=== PATIENT | female | born 1990 | race Caucasian/White ===

== ENCOUNTER 2017-11-01 19:03 | Emergency (ER) | payer BC ==
[2017-11-01 19:15] VITALS: RESP 16; TEMP 98
--- NOTE | 2017-11-01 20:37 | ED PDOC ---
HPI: Abdomen Time Seen by Provider: 11/01/17 19:32 Chief Complaint (Nursing): Abdominal Pain Chief Complaint (Provider): Abdominal Pain History Per: Patient History/Exam Limitations: no limitations Onset/Duration Of Symptoms: Days (3x) Current Symptoms Are (Timing): Still Present Location Of Pain/Discomfort: RLQ Quality Of Discomfort: "Pain" Associated Symptoms: Constipation. denies: Fever, Nausea, Vomiting Additional Complaint(s): Irina Salazar is a 26 year old female who presents to the ED for an evaluation of abdominal pain onset for 3 days. Patient has abdominal pain since Monday with constipation and decreased appetite. She denies fever, nausea and vomiting. PMD: Dr. Jacobo Past Medical History Reviewed: Historical Data, Nursing Documentation, Vital Signs Vital Signs: Last Vital Signs Temp 98.0 F 11/01/17 19:13 Pulse 79 11/01/17 22:56 Resp 16 11/01/17 22:56 BP 127/82 11/01/17 22:56 Pulse Ox 99 11/01/17 22:56 - Medical History PMH: No Chronic Diseases - Family History Family History: States: Unknown Family Hx - Social History Current smoker - smoking cessation education provided: Yes Alcohol: Social Drugs: Denies - Home Medications Home Medications: Ambulatory Orders Medication Instructions Recorded Azithromycin [Zithromax] 250 mg PO DAILY #6 tab 11/21/15 Polyethylene Glycol 3350 [Miralax] 17 g PO QAM PRN #7 pkg 11/01/17 - Allergies Allergies/Adverse Reactions: Allergies Allergy/AdvReac Type Severity Reaction Status Date / Time No Known Allergies Allergy Verified 11/01/17 19:13 Review of Systems ROS Statement: Except As Marked, All Systems Reviewed And Found Negative Constitutional: Negative for: Fever Gastrointestinal: Positive for: Abdominal Pain (right lower quadrant), Constipation. Negative for: Nausea, Vomiting Psych: Negative for: Suicidal ideation (homicidal ideation ) Physical Exam - Reviewed Nursing Documentation Reviewed: Yes Vital Signs Reviewed: Yes - Physical Exam Appears: Positive for: Well, Non-toxic, No Acute Distress Head Exam: Positive for: ATRAUMATIC, NORMAL INSPECTION, NORMOCEPHALIC Skin: Positive for: Normal Color, Warm, Dry Eye Exam: Positive for: EOMI, Normal appearance, PERRL ENT: Positive for: Normal ENT Inspection Neck: Positive for: Normal, Painless ROM, Supple. Negative for: Decreased ROM Cardiovascular/Chest: Positive for: Regular Rate, Rhythm. Negative for: Murmur Respiratory: Positive for: Normal Breath Sounds. Negative for: Decreased Breath Sounds, Wheezing, Respiratory Distress Gastrointestinal/Abdominal: Positive for: Soft, Tenderness (right lower quadrant ) Back: Positive for: Normal Inspection. Negative for: L CVA Tenderness, R CVA Tenderness Extremity: Positive for: Normal ROM. Negative for: Tenderness, Pedal Edema, Deformity Neurologic/Psych: Positive for: Alert, Oriented (x3). Negative for: Motor/ Sensory Deficits - Laboratory Results Result Diagrams: 11/01/17 20:18 11/01/17 20:18 - ECG O2 Sat by Pulse Oximetry: 98 (RA) Pulse Ox Interpretation: Normal Medical Decision Making Medical Decision Making: Time: 1953 Initial Impression: 26 year old female with right lower quadrant tenderness Initial Plan: --Abdomen & Pelvis IV Contrast [CT] --CMP --Lipase --Urine --ED Urine Dipstick --CBC w/ Differential --Toradol 15mg IV --Blood Culture --IV Insertion --Urinalysis Time: 2253 EXAM: CT Abdomen and Pelvis With Intravenous Contrast CLINICAL HISTORY: 26 years old, female; Pain; Abdominal pain; Flank; Right upper quadrant (ruq); Prior surgery; Surgery date: 6+ months; Surgery type: ; Additional info : Rlq pain TECHNIQUE: Axial computed tomography images of the abdomen and pelvis with intravenous contrast. All CT scans at this facility use at least one of these dose optimization techniques: automated exposure control; mA and/or kV adjustment per patient size (includes targeted exams where dose is matched to clinical indication); or iterative reconstruction. CONTRAST: 90 mL of Omnipaque was administered intravenously. COMPARISON: No relevant prior studies available. FINDINGS: Lung bases: Unremarkable. No mass. No consolidation. ABDOMEN: Liver: Unremarkable. No mass. Gallbladder and bile ducts: Unremarkable. No calcified stones. No ductal dilation. Pancreas: Unremarkable. No mass. No ductal dilation. Spleen: Unremarkable. No splenomegaly. Adrenals: Unremarkable. No mass. Kidneys and ureters: Unremarkable. No solid mass. No hydronephrosis. Stomach and bowel: Mild fecal retention in the right colon. No obstruction. No mucosal thickening. PELVIS: Appendix: Normal appendix. Bladder: Unremarkable. No mass. Reproductive: Unremarkable as visualized. ABDOMEN and PELVIS: Intraperitoneal space: Trace free fluid in the pelvis which is likely physiologic fluid. No free air. Bones/joints: No acute fracture. No dislocation. Soft tissues: Unremarkable. Vasculature: Unremarkable. No abdominal aortic aneurysm. Lymph nodes: Unremarkable. No enlarged lymph nodes. IMPRESSION: Mild fecal retention in the right colon. No acute findings Upon reevaluation, patient has improved on symptoms and has stable vitals. She was diagnosed with abdominal pain and constipation. Scribe Attestation: Documented by Lorne Fitch, acting as a scribe for Stan Nieto MD Provider Scribe Attestation: All medical record entries made by the Scribe were at my direction and personally dictated by me. I have reviewed the chart and agree that the record accurately reflects my personal performance of the history, physical exam, medical decision making, and the department course for this patient. I have also personally directed, reviewed, and agree with the discharge instructions and disposition. Disposition - Clinical Impression Clinical Impression: Constipation, Abdominal pain - Disposition Disposition Time: 22:30 Condition: STABLE Prescriptions: Polyethylene Glycol 3350 [Miralax] 17 g PO QAM PRN #7 pkg PRN Reason: Constipation Instructions: Constipation in Adults Forms: [employer] (Macedonian), [facility] ED School/Work Excuse
[2017-11-01 20:47] LABS: ALB/GLOB RATIO 1.3 (1.0-2.1); ALBUMIN 4.5 g/dL (3.5-5.0); ALT/SGPT 23 U/L (9-52); AST/SGOT 39 U/L (14-36); BASO % 0.6 % (0.0-2.0); BLOOD UREA NITROGEN 13 mg/dl (7-17); CALCIUM 9.4 mg/dL (8.4-10.2); EOS % 0.5 % (0.0-4.0); GFR NON-AFRICAN AMERICAN > 60; HEMOGLOBIN 12.7 g/dL (12.0-16.0); LIPASE 103 U/L (23-300); LYMPH # 1.5 K/uL (1.0-4.3); MEAN CELL VOLUME 93.7 fl (81.0-99.0); MEAN CORPUSCULAR HEMOGLOBIN 31.1 pg (27.0-31.0); MEAN CORPUSCULAR HGB CONC 33.2 g/dL (33.0-37.0); MEAN PLATELET VOLUME 9.2 fl (7.2-11.7); MONO # 0.5 K/uL (0.0-0.8); MONO % 9.2 % (0.0-10.0); NEUT # 2.9 K/uL (1.8-7.0); NEUT % 58.7 % (50.0-75.0); NRBC % 0.1 % (0.0-0.0); RBC 4.1 Mil/uL (3.80-5.20); RED CELL DISTRIBUTION WIDTH 12.2 % (11.5-14.5); SQUAMOUS EPITHIAL 11 /hpf (0-5); URINE BILIRUBIN NEGATIVE (NEGATIVE); URINE BLOOD NEGATIVE (NEGATIVE); URINE CLARITY SLIGHTY-CLOUDY (Clear); URINE COLOR YELLOW (YELLOW); URINE GLUCOSE (UA) NEG (Normal); URINE LEUKOCYTE ESTERASE NEG Leu/uL (Negative); URINE PROTEIN 30 mg/dL (NEGATIVE); URINE UROBILINOGEN 0.2-1.0 mg/dL (0.2-1.0); WHITE BLOOD COUNT 4.9 K/uL (4.8-10.8)
[2017-11-01] MEDS ORDERED: Iohexol 300 100 ML IJ ONE (21:47)
[2017-11-01] MEDS ORDERED: Sodium Chloride 0.9% 50 ML IV ONE (21:47)
[2017-11-01 23:07] VITALS: BP 127/82; PULSE 79
[2017-11-02 04:34] VITALS: O2SAT 98
--- NOTE | 2017-11-02 10:02 | CT ---
Date of service: 11/01/2017 PROCEDURE: CT Abdomen and Pelvis with contrast HISTORY: RLQ pain COMPARISON: None. TECHNIQUE: CT scan of the abdomen and pelvis was performed after administration of intravenous contrast. Oral contrast was not administered. Coronal and sagittal reformatted images were obtained. Contrast dose: 90 cc Omnipaque 300 Radiation dose: Total exam DLP = 326.98 mGy-cm. This CT exam was performed using one or more of the following dose reduction techniques: Automated exposure control, adjustment of the mA and/or kV according to patient size, and/or use of iterative reconstruction technique. FINDINGS: LOWER THORAX: The visualized lungs are clear. LIVER: Normal in size with normal enhancement. No gross lesion or ductal dilatation. GALLBLADDER AND BILE DUCTS: No calcified gallstones. PANCREAS: Normal in size and appearance. No gross lesion or ductal dilatation. SPLEEN: Normal in size and appearance. ADRENALS: Unremarkable. No mass. KIDNEYS AND URETERS: Normal in size and appearance. No hydronephrosis. No solid mass. VASCULATURE: No aortic aneurysm. BOWEL: The small bowel loops are normal in caliber. There is large amount of stool in the ascending colon and cecum. APPENDIX: Normal appendix. PERITONEUM: Unremarkable. No free fluid. No free air. LYMPH NODES: Unremarkable. No enlarged lymph nodes. BLADDER: Unremarkable. REPRODUCTIVE: Unremarkable. BONES: No acute fracture. OTHER FINDINGS: None. IMPRESSION: No acute abdominal or pelvic abnormality. Large amount of stool in the ascending colon and cecum. A preliminary report was provided by [facility].
== END 2017-11-01 23:07 | disposition home or self-care (01) ==
LOC: H.ER 19:03
DX: K59.00 Constipation, unspecified (principal); R10.9 Unspecified abdominal pain; F17.200 Nicotine dependence, unspecified, uncomplicated
CPT/HCPCS: 74177; 80053; 81003; 81025; 83690; 85025; 87040; 99283; J1885; Q9967

== ENCOUNTER 2017-11-14 08:08 | Emergency (ER) | payer BC ==
[2017-11-14 08:20] VITALS: RESP 20
[2017-11-14 08:21] VITALS: BMI 21.9
[2017-11-14 12:59] VITALS: BP 120/70; PULSE 82; TEMP 98; O2SAT 98
--- NOTE | 2017-11-14 15:50 | ED PDOC ---
HPI: Back Time Seen by Provider: 11/14/17 08:54 Chief Complaint (Nursing): Back Pain Chief Complaint (Provider): Back Pain History Per: Patient History/Exam Limitations: no limitations Additional Complaint(s): 26 years old female with history of scoliosis presents to the ED for evaluation of upper and lower back pain ongoing for months but has been worsening and she is unable to sleep at night due to the pain. Patient reports taking Tylenol for pain with no relief. She denies any fever or shortness of breath. PMD: Renetta Smith MD Past Medical History Reviewed: Historical Data, Nursing Documentation, Vital Signs Vital Signs: Last Vital Signs Temp 98 F 11/14/17 12:59 Pulse 82 11/14/17 12:59 Resp 20 11/14/17 08:27 BP 120/70 11/14/17 12:59 Pulse Ox 98 11/14/17 12:59 - Medical History Other PMH: Scoliosis - Surgical History Surgical History: No Surg Hx - Family History Family History: States: Unknown Family Hx - Social History Current smoker - smoking cessation education provided: No Alcohol: Social Drugs: Denies - Immunization History Hx Tetanus Toxoid Vaccination: No Hx Influenza Vaccination: No Hx Pneumococcal Vaccination: No - Home Medications Home Medications: Ambulatory Orders Medication Instructions Recorded Azithromycin [Zithromax] 250 mg PO DAILY #6 tab 11/21/15 Polyethylene Glycol 3350 [Miralax] 17 g PO QAM PRN #7 pkg 11/01/17 Cyclobenzaprine [Flexeril] 5 mg PO TID #15 tab 11/14/17 Naproxen 500 mg PO BID #20 tab 11/14/17 - Allergies Allergies/Adverse Reactions: Allergies Allergy/AdvReac Type Severity Reaction Status Date / Time No Known Allergies Allergy Verified 11/01/17 19:13 Review of Systems ROS Statement: Except As Marked, All Systems Reviewed And Found Negative Constitutional: Negative for: Fever Respiratory: Negative for: Shortness of Breath Musculoskeletal: Positive for: Back Pain (upper and lower) Physical Exam - Reviewed Nursing Documentation Reviewed: Yes Vital Signs Reviewed: Yes - Physical Exam Appears: Positive for: Non-toxic, No Acute Distress Head Exam: Positive for: ATRAUMATIC, NORMOCEPHALIC Eye Exam: Positive for: Normal appearance, EOMI, PERRL Cardiovascular/Chest: Positive for: Regular Rate, Rhythm. Negative for: Murmur Respiratory: Positive for: Normal Breath Sounds. Negative for: Respiratory Distress Back: Positive for: Normal Inspection. Negative for: L CVA Tenderness, R CVA Tenderness Extremity: Positive for: Normal ROM. Negative for: Tenderness Neurologic/Psych: Positive for: Alert, Oriented (x3) - ECG O2 Sat by Pulse Oximetry: 98 (RA) Pulse Ox Interpretation: Normal Medical Decision Making Medical Decision Making: Time: 914 Initial Impression: Back pain. Differential includes but not limited to musculoskeletal pain, scoliosis pain Initial Plan: --Flexirel 10 mg PO --Toradol 30 mg IM 1258 Upon provider reevaluation patient is feeling better, is medically stable, and requires no further treatment in the ED at this time. Patient will be discharged home with Rx for Flexeril and Naproxen. Counseling was provided and all questions were answered regarding diagnosis. ----- Scribe Attestation: Documented by Arely Zaman, acting as a scribe for Florian Marie MD. Provider Scribe Attestation: All medical record entries made by the Scribe were at my direction and personally dictated by me. I have reviewed the chart and agree that the record accurately reflects my personal performance of the history, physical exam, medical decision making, and the department course for this patient. I have also personally directed, reviewed, and agree with the discharge instructions and disposition. Disposition - Clinical Impression Clinical Impression: Back pain - Disposition Referrals: [facility] [Outside] Froy Aguirre MD [Staff Provider] - Disposition: Routine/Home Disposition Time: 12:58 Condition: GOOD Additional Instructions: Take medications as instructed. Follow up with your PCP in 2-3 days. Prescriptions: Cyclobenzaprine [Flexeril] 5 mg PO TID #15 tab Naproxen 500 mg PO BID #20 tab Instructions: Upper Back Pain Forms: [facility] ED School/Work Excuse
== END 2017-11-14 12:59 | disposition home or self-care (01) ==
LOC: H.ER 08:08
DX: M54.9 Dorsalgia, unspecified (principal); M41.9 Scoliosis, unspecified
CPT/HCPCS: 81025; 96372; 99283; J1885

== ENCOUNTER 2018-06-13 16:28 | Emergency (ER) | payer BC, MEDICAID ==
[2018-06-13 16:28] VITALS: BMI 21.9
[2018-06-13 16:45] VITALS: BP 98/61; TEMP 99.9
[2018-06-13] MEDS ORDERED: Sodium Chloride 0.9% 1,000 ML IV STA (17:48)
--- NOTE | 2018-06-13 17:53 | ED PDOC ---
HPI: Abdomen Time Seen by Provider: 06/13/18 17:43 Chief Complaint (Nursing): Chest Pain Chief Complaint (Provider): Abdominal Pain History Per: Patient History/Exam Limitations: no limitations Onset/Duration Of Symptoms: Hrs (since 1100 today) Current Symptoms Are (Timing): Still Present Additional Complaint(s): 27 year old female presents to the ED for evaluation of epigastric abdominal pain associated with nausea, headache, and dizziness since 1100 this morning. O therwise, denies vomiting, diarrhea, fever, and urinary symptoms. PMD: Geena Guerrero Past Medical History Reviewed: Historical Data, Nursing Documentation, Vital Signs Vital Signs: Last Vital Signs Temp 99.9 F H 06/13/18 16:45 Pulse 106 H 06/13/18 16:45 Resp 16 06/13/18 16:45 BP 98/61 L 06/13/18 16:45 Pulse Ox 99 06/13/18 16:45 - Medical History PMH: No Chronic Diseases - Surgical History Surgical History: - Family History Family History: States: Unknown Family Hx - Social History Current smoker - smoking cessation education provided: No Alcohol: Social Drugs: Denies - Immunization History Hx Tetanus Toxoid Vaccination: No Hx Influenza Vaccination: No Hx Pneumococcal Vaccination: No - Home Medications Home Medications: Ambulatory Orders Medication Instructions Recorded Azithromycin [Zithromax] 250 mg PO DAILY #6 tab 11/21/15 Polyethylene Glycol 3350 [Miralax] 17 g PO QAM PRN #7 pkg 11/01/17 Cyclobenzaprine [Flexeril] 5 mg PO TID #15 tab 11/14/17 Naproxen 500 mg PO BID #20 tab 11/14/17 Pantoprazole Sodium [Protonix] 40 mg PO DAILY #30 tablet. 06/13/18 - Allergies Allergies/Adverse Reactions: Allergies Allergy/AdvReac Type Severity Reaction Status Date / Time No Known Allergies Allergy Verified 11/01/17 19:13 Review of Systems ROS Statement: Except As Marked, All Systems Reviewed And Found Negative Constitutional: Negative for: Fever Gastrointestinal: Positive for: Nausea, Abdominal Pain (epigastric). Negative for: Vomiting, Diarrhea Genitourinary Female: Negative for: Dysuria, Frequency, Incontinence Neurological: Positive for: Headache, Dizziness Physical Exam - Reviewed Nursing Documentation Reviewed: Yes Vital Signs Reviewed: Yes - Physical Exam Appears: Positive for: No Acute Distress Head Exam: Positive for: ATRAUMATIC, NORMOCEPHALIC Skin: Positive for: Normal Color, Warm. Negative for: Rash Eye Exam: Positive for: Normal appearance ENT: Positive for: Normal ENT Inspection Neck: Positive for: Normal, Painless ROM, Supple Cardiovascular/Chest: Positive for: Regular Rate, Rhythm Respiratory: Positive for: Normal Breath Sounds. Negative for: Respiratory Distress Gastrointestinal/Abdominal: Positive for: Soft, Tenderness (epigastric tenderness). Negative for: Guarding, Rebound Back: Positive for: Normal Inspection. Negative for: L CVA Tenderness, R CVA Tenderness, Vertebral Tenderness Extremity: Positive for: Normal ROM (all extremities) Neurological/Psych: Positive for: Awake, Alert, Symmetric/Intact Strength (5/5 x4 extremities), Oriented (x3). Negative for: Motor/Sensory Deficits - Laboratory Results Result Diagrams: 06/13/18 18:10 06/13/18 18:10 - ECG O2 Sat by Pulse Oximetry: 99 (RA) Pulse Ox Interpretation: Normal Medical Decision Making Medical Decision Making: Time: 1747 Initial Impression: abdominal pain, r/o gastritis Initial Plan: --CMP --Lipase chemistry --U-preg --U-dip --CBC with differential --Normal saline IV --Pepcid 20mg IVP --Zofran 4mg IVP Scribe Attestation: Documented by Dahiana Broussard, acting as a scribe for Kody Gutierrez MD. Provider Scribe Attestation: All medical record entries made by the Scribe were at my direction and personally dictated by me. I have reviewed the chart and agree that the record accurately reflects my personal performance of the history, physical exam, medical decision making, and the department course for this patient. I have also personally directed, reviewed, and agree with the discharge instructions and disposition. Disposition - Clinical Impression Clinical Impression: Gastritis - Patient ED Disposition Is Patient to be Admitted: No Counseled Patient/Family Regarding: Studies Performed, Diagnosis, Need For Followup, Rx Given - Disposition Referrals: [facility] [Outside] Disposition: Routine/Home Disposition Time: 21:23 Condition: FAIR Prescriptions: Pantoprazole Sodium [Protonix] 40 mg PO DAILY #30 tablet. Instructions: Gastritis Forms: [employer] ([place])
[2018-06-13 18:20] LABS: BASO % 0.2 % (0.0-2.0); EOS % 0.2 % (0.0-4.0); LYMPH # 0.2 K/uL (1.0-4.3); LYMPH % 3.2 % (20.0-40.0); MEAN CELL VOLUME 93.3 fl (81.0-99.0); MEAN CORPUSCULAR HEMOGLOBIN 30.9 pg (27.0-31.0); MEAN CORPUSCULAR HGB CONC 33.1 g/dL (33.0-37.0); MEAN PLATELET VOLUME 8.9 fl (7.2-11.7); MONO # 0.3 K/uL (0.0-0.8); MONO % 3.6 % (0.0-10.0); NEUT # 6.7 K/uL (1.8-7.0); NEUT % 92.8 % (50.0-75.0); NRBC % 0.2 % (0.0-0.0); PLATELET COUNT 190 K/uL (130-400); RBC 4.21 Mil/uL (3.80-5.20); WHITE BLOOD COUNT 7.2 K/uL (4.8-10.8)
[2018-06-13 18:29] LABS: ALB/GLOB RATIO 1.3 (1.0-2.1); ALBUMIN 4.6 g/dL (3.5-5.0); ALT/SGPT 31 U/L (9-52); AST/SGOT 30 U/L (14-36); BLOOD UREA NITROGEN 10 mg/dl (7-17); CALCIUM 9.4 mg/dL (8.4-10.2); GFR NON-AFRICAN AMERICAN > 60; LIPASE 54 U/L (23-300)
[2018-06-13 19:17] LABS: BANDS 3 % (0-2); HYPOCHROMIC SLIGHT; LYMPHOCYTE 5 % (20-50); MONOCYTE 4 % (0-10); NEUTROPHIL 88 % (42-75); PLATELET ESTIMATE NORMAL (NORMAL); TOTAL CELLS COUNTED 100
[2018-06-13 21:39] VITALS: PULSE 84; RESP 17; O2SAT 100
--- NOTE | 2018-06-14 11:21 | CARD ---
APPROVED REPORT Date of service: 06/13/2018 EKG Measurement Heart [id number] <Conclusion> Normal sinus rhythm Normal ECG
== END 2018-06-13 21:38 | disposition home or self-care (01) ==
LOC: H.ER 16:28
DX: K29.70 Gastritis, unspecified, without bleeding (principal)
CPT/HCPCS: 80053; 83690; 85025; 93005; 96374; 96375; 99284; J1885; J2405; J7030